=== PATIENT | female | born 1975 ===

== ENCOUNTER 2017-12-13 16:54 | Emergency (ER) | payer OTHER ==
[~2017-12-13] VITALS: Ht 152.4 cm; Wt 115.2 kg
[~2017-12-13 16:54] MED LIST: ALBU90OI INH; BENZ100A PO; Bactrim Ds Tab1 EACH PO; CEPH500 PO; CRUTCH4 USE; IBUP600 PO; IBUP800 PO; MELO7.5 PO; METF500 PO; METPRE4DP PO; NAPR500 PO; NITR100CA PO; OXYACE5T PO; OXYM.05NI; PHENA200 PO; PIOG15 PO; PROACE100 PO; Prednisone20 MG PO; Protonix40 MG PO; Pseudoephedrine30 MG PO; SPACE CHAMBER1 EACH MC; Zithromax250 MG PO
[2017-12-13] MEDS ORDERED: Mobic15 MG (17:42)
[2017-12-13] MEDS ORDERED: PIOG30 (17:42)
[2017-12-13 17:44] LABS: BASOPHILS ABSOLUTE AUTO 0.07 K/mm3 (0.00-0.23); BASOPHILS PERCENT AUTO 1 % (0-2); EOSINOPHILS ABSOLUTE AUTO 0.05 K/mm3 (0.00-0.68); EOSINOPHILS PERCENT AUTO 1 % (0-6); Hematocrit 42.4 % (33.0-51.0); Hemoglobin 14.3 g/dL (11.5-16.0); IMMATURE GRAN ABSOLUTE AUTO 0.01 K/mm3 (0.00-0.10); IMMATURE GRAN PERCENT AUTO 0 % (0-1); LYMPHOCYTES ABSOLUTE AUTO 1.86 K/mm3 (0.84-5.20); LYMPHOCYTES PERCENT AUTO 35 % (21-46); MONOCYTES ABSOLUTE AUTO 0.51 K/mm3 (0.16-1.47); MONOCYTES PERCENT AUTO 10 % (4-13); Mean Corpuscular HGB 31.2 pg (26.0-34.0); Mean Corpuscular HGB Conc 33.7 g/dL (31.5-36.5); Mean Corpuscular Volume 92 fL (80-100); NEUTROPHILS ABSOLUTE AUTO 2.86 K/mm3 (1.96-9.15); NEUTROPHILS PERCENT AUTO 53 % (41-73); Platelet Count 254 K/mm3 (150-400); RDW Coefficient Variation 12.4 % (11.7-14.2); RDW Standard Deviation 42.3 fL (35.1-46.3); Red Blood Cell Count 4.59 M/mm3 (3.80-5.20); White Blood Cell Count 5.36 K/mm3 (4.00-11.30)
[2017-12-13 18:04] LABS: Alanine Aminotransfer (ALT/SGP 29 U/L (12-78); Albumin, Blood 3.4 g/dL (3.4-5.0); Albumin/Globulin Ratio 0.8 (0.8-1.8); Alk Phos 60 U/L (50-136); Anion Gap 10 mmol/L (6-16); Aspartate Aminotrans (AST/SGOT 21 U/L (12-37); Bilirubin, Total 0.2 mg/dL (0.1-1.0); Blood Urea Nitrogen 11 mg/dL (8-24); Bun/Creatinine Ratio 23.4 (12.0-20.0); CO2, Blood 22 mmol/L (21-32); Calcium, Blood 8.9 mg/dL (8.5-10.1); Chloride, Blood 100 mmol/L (98-108); Creatinine, Blood 0.47 mg/dL (0.40-1.00); Globulin, Blood 4.1 g/dL (2.2-4.0); Glomerular Filtration Rate >60 (60-); Glucose, Blood 265 mg/dL (70-99); Sodium, Blood 132 mmol/L (136-145); Total Protein, Blood 7.5 g/dL (6.4-8.2)
[2017-12-13] MEDS ORDERED: Zofran Odt4 MG SL (19:06)
[2018-06-22] MEDS ORDERED: ERGO400 PO (17:09)
== END 2017-12-13 20:01 | disposition home or self-care (01) ==
LOC: ER 16:54
PROVIDERS: Nurse Practitioner Family
DX: K52.9 Noninfective gastroenteritis and colitis, unspecified (principal); E11.9 Type 2 diabetes mellitus without complications; Z88.5 Allergy status to narcotic agent; Z88.0 Allergy status to penicillin; Z88.8 Allergy status to other drugs, medicaments and biological substances; Z87.891 Personal history of nicotine dependence; Z79.899 Other long term (current) drug therapy
CPT/HCPCS: 36415; 80053; 81000; 81025; 83690; 85025; 96361; 96374; 96375; 96376; 99283; J1885; J2405; J7030

== ENCOUNTER 2017-12-21 22:39 | Emergency (ER) | payer OTHER ==
[~2017-12-21] VITALS: Ht 152.4 cm; Wt 115.2 kg
[~2017-12-21 22:39] MED LIST changes: +Mobic15 MG; +PIOG30; +Zofran Odt4 MG SL
[2017-12-21 23:04] LABS: BASOPHILS ABSOLUTE AUTO 0.05 K/mm3 (0.00-0.23); BASOPHILS PERCENT AUTO 1 % (0-2); EOSINOPHILS ABSOLUTE AUTO 0.03 K/mm3 (0.00-0.68); EOSINOPHILS PERCENT AUTO 1 % (0-6); Hematocrit 38.6 % (33.0-51.0); Hemoglobin 13.5 g/dL (11.5-16.0); IMMATURE GRAN PERCENT AUTO 0 % (0-1); LYMPHOCYTES ABSOLUTE AUTO 2.12 K/mm3 (0.84-5.20); LYMPHOCYTES PERCENT AUTO 34 % (21-46); MONOCYTES ABSOLUTE AUTO 0.71 K/mm3 (0.16-1.47); MONOCYTES PERCENT AUTO 11 % (4-13); Mean Corpuscular HGB 30.9 pg (26.0-34.0); Mean Platelet Volume 9.5 fL (9.1-12.4); NEUTROPHILS ABSOLUTE AUTO 3.38 K/mm3 (1.96-9.15); NEUTROPHILS PERCENT AUTO 54 % (41-73); Platelet Count 244 K/mm3 (150-400); RDW Coefficient Variation 12.2 % (11.7-14.2); RDW Standard Deviation 39.5 fL (35.1-46.3); Red Blood Cell Count 4.37 M/mm3 (3.80-5.20); White Blood Cell Count 6.29 K/mm3 (4.00-11.30)
[2017-12-21 23:07] LABS: Mean Corpuscular Volume 88 fL (80-100)
[2017-12-21 23:26] LABS: Alanine Aminotransfer (ALT/SGP 27 U/L (12-78); Albumin, Blood 3.4 g/dL (3.4-5.0); Albumin/Globulin Ratio 0.8 (0.8-1.8); Alk Phos 57 U/L (50-136); Anion Gap 9 mmol/L (6-16); Aspartate Aminotrans (AST/SGOT 13 U/L (12-37); Bilirubin, Total 0.3 mg/dL (0.1-1.0); Blood Urea Nitrogen 8 mg/dL (8-24); Bun/Creatinine Ratio 16.9 (12.0-20.0); CO2, Blood 22 mmol/L (21-32); Calcium, Blood 8.4 mg/dL (8.5-10.1); Chloride, Blood 101 mmol/L (98-108); Creatinine, Blood 0.47 mg/dL (0.40-1.00); Globulin, Blood 4.3 g/dL (2.2-4.0); Glomerular Filtration Rate >60 (60-); Glucose, Blood 356 mg/dL (70-99); Potassium, Blood 3.5 mmol/L (3.5-5.5); Sodium, Blood 132 mmol/L (136-145); Total Protein, Blood 7.7 g/dL (6.4-8.2); Troponin I <0.015 ng/mL (0.000-0.040)
[2017-12-21] MEDS ORDERED: Ativan0.5 MG PO (23:43)
[2018-06-22] MEDS ORDERED: ERGO400 PO (17:09)
== END 2017-12-22 00:13 | disposition home or self-care (01) ==
LOC: ER 22:39
PROVIDERS: Emergency Medicine
DX: F41.9 Anxiety disorder, unspecified (principal); R73.03 Prediabetes; Z88.0 Allergy status to penicillin; Z88.5 Allergy status to narcotic agent; Z88.8 Allergy status to other drugs, medicaments and biological substances; Z79.899 Other long term (current) drug therapy
CPT/HCPCS: 80053; 84484; 85025; 93005; 93010; 96361; 96374; 99283; J2060; J7030

== ENCOUNTER 2018-04-04 19:11 | Emergency (ER) | payer OTHER ==
[~2018-04-04] VITALS: Ht 152.4 cm; Wt 115.7 kg
[~2018-04-04 19:11] MED LIST changes: +Ativan0.5 MG PO
[2018-04-04 21:20] LABS: Calcium, Ionized (POC) 1.07 mmol/L (1.10-1.46); Chloride (POC) 100 mmol/L (98-108); Creatinine (POC) 0.3 mg/dL (0.6-1.0); Glucose (ISTAT POC) 243 mg/dL (70-99); Hemoglobin (POC) 12.9 g/dL (12.0-16.0); Potassium (POC) 3.7 mmol/L (3.5-5.5); Sodium (POC) 135 mmol/L (135-148); Total CO2 (POC) 25 mmol/L (21-32)
[2018-04-04] MEDS ORDERED: PIOG30 PO (21:24)
== END 2018-04-04 21:49 | disposition home or self-care (01) ==
LOC: ER 19:11
PROVIDERS: Emergency Medicine
DX: E11.65 Type 2 diabetes mellitus with hyperglycemia (principal); F41.9 Anxiety disorder, unspecified; E66.9 Obesity, unspecified; Z68.42 Body mass index [BMI] 45.0-49.9, adult
CPT/HCPCS: 36415; 80047; 81000; 82947; 85014; 99283

== ENCOUNTER → 2018-05-20 | Outpatient (CLI) | payer OTHER ==
[~2018-05-20] MED LIST changes: +PIOG30 PO
[2018-05-22 15:08] LABS: HPV 16 Negative (Negative); HPV 18 Negative (Negative); HPV OTHER HR TYPES Negative (Negative)
== END ==
LOC: LAB SHORT 10:45 → LAB 10:45
PROVIDERS: Nurse Practitioner Family
DX: Z01.419 Encounter for gynecological examination (general) (routine) without abnormal findings (principal)
CPT/HCPCS: 87624; G0123

== ENCOUNTER 2020-02-17 05:03 | Day surgery (SDC) | payer OTHER ==
[~2020-02-17 05:03] MED LIST changes: +ERGO400 PO; +OMEPRAZOLE20 MG PO; +ONDA4ODT MM; +PANT40 PO; +THEO300ERA PO
== END 2020-02-18 15:00 | disposition home or self-care (01) ==
LOC: ORSCSDS 05:03
DX: R10.13 Epigastric pain (principal); R13.10 Dysphagia, unspecified; K76.0 Fatty (change of) liver, not elsewhere classified; Z53.8 Procedure and treatment not carried out for other reasons
CPT/HCPCS: J7120

== ENCOUNTER 2020-03-17 20:02 | Emergency (ER) | payer OTHER ==
[~2020-03-17] VITALS: Ht 160 cm; Wt 90.7 kg
[~2020-03-17 20:02] MED LIST changes: +Flonase 0.05% N16 GM; +OMEP20ER
[2020-03-17] MEDS ORDERED: Voltaren100 GM TOP (21:38)
== END 2020-03-17 21:57 | disposition home or self-care (01) ==
LOC: ER 20:02
DX: S09.90XA Unspecified injury of head, initial encounter (principal); S16.1XXA Strain of muscle, fascia and tendon at neck level, initial encounter; S30.0XXA Contusion of lower back and pelvis, initial encounter; Z88.0 Allergy status to penicillin; Z88.5 Allergy status to narcotic agent; Z88.8 Allergy status to other drugs, medicaments and biological substances; E11.9 Type 2 diabetes mellitus without complications; F41.9 Anxiety disorder, unspecified; K21.9 Gastro-esophageal reflux disease without esophagitis; W18.30XA Fall on same level, unspecified, initial encounter
CPT/HCPCS: 70450; 72125; 72131; 99284-25

== ENCOUNTER 2021-10-06 15:45 | Emergency (ER) | payer OTHER ==
[~2021-10-06] VITALS: Ht 152.4 cm; Wt 115.7 kg
[~2021-10-06 15:45] MED LIST changes: +Voltaren100 GM TOP
== END 2021-10-06 17:30 | disposition home or self-care (01) ==
LOC: ER 15:45
DX: S80.01XA Contusion of right knee, initial encounter (principal); S60.011A Contusion of right thumb without damage to nail, initial encounter; E11.9 Type 2 diabetes mellitus without complications; K21.9 Gastro-esophageal reflux disease without esophagitis; Z88.5 Allergy status to narcotic agent; Z88.0 Allergy status to penicillin; Z88.6 Allergy status to analgesic agent; Z88.8 Allergy status to other drugs, medicaments and biological substances; Z79.899 Other long term (current) drug therapy; W18.30XA Fall on same level, unspecified, initial encounter
CPT/HCPCS: 73100; 73562-RT; 96372; 99283-25; J1885